=== PATIENT | female | born 1985 | race Caucasian/White ===

== ENCOUNTER → 2022-01-29 | Outpatient (CLI) | payer SELFPAY, OTHER ==
--- NOTE | 2022-01-29 15:11 | US_ITS ---
STUDY: ULTRASOUND OF THE FEMALE PELVIS - COMPLETE REASON FOR EXAM: Female, 36 years old. BLOATED AB TECHNIQUE: Endovaginal. Transvaginal US was obtained to better visualized the ovaries. COMPARISON: None. FINDINGS: The uterus is anteverted and is in a midline position. The uterus measures 16 x 11.4 cm. Normal uterine cervix. The endometrium measures 4.7 mm in thickness, and is hyperechoic. There is no demonstrated endometrial mass. Fibroids measure 2.6 x 4.1 cm. I.U.D. - The patient does not have an I.U.D. The right ovary is visualized. The right ovary measures 3.8 x 3.3 cm. There is no right ovarian cyst or ovarian mass. There is no visualized right adnexal mass or complex lesion. There is normal arterial and normal venous vascularity. The left ovary is visualized. The left ovary measures 2.2 x 1.7 cm. There is no left ovarian cyst or ovarian mass. There is no visualized left adnexal mass or complex lesion. There is normal arterial and normal venous vascularity. There is no fluid in the cul-de-sac. The urinary bladder is distended. This can suggest urinary retention. US/Pelvic (Non ) IMPRESSION: Fibroid uterus. The urinary bladder is distended. This can suggest urinary retention. Electronically Signed: Xander Cadena MD at 18:21 EDT ,
== END | disposition home or self-care (01) ==
PROVIDERS: PCP Family Medicine
DX: R14.0 Abdominal distension (gaseous) (principal)
CPT/HCPCS: 76856

== ENCOUNTER 2022-04-24 05:42 | Inpatient (IN) | payer SELFPAY, OTHER ==
[2022-04-11 09:37] LABS: Hematocrit 43.5 % (37-47); Hemoglobin 14.2 g/dL (12.0-15.0); Mean Corp Hgb Conc 32.6 g/dL (32-36); Mean Corpuscular Hgb 29.7 pg (27.0-32.0); Mean Platelet Vol. 9.8 fl (6.2-12.0); Platelet Count 261 K/mm3 (150-450); RBC Distribution Width CV 12.6 % (11.6-14.6); RBC Distribution Width SD 41.8 fl (35.1-43.9); Red Blood Count 4.78 M/mm3 (4.2-5.4); White Blood Count 8.3 K/mm3 (4.4-11.0)
--- NOTE | 2022-04-17 10:56 | CASEMGMT ---
HAYDEN WRIGHT Assessment: TC to pt for initial transition planning/care coordination assessment. RN ADRIANA introduced self and role at [facility], pt voices understanding and consents to assessment. Care providers, pharmacy, and demographics verified/updated. Admitting Dx: abdominal myomectomy PCP:Jose Specialists:Diana Weiner, THEATRICAL VARIETY AGENT Preferred Pharmacy: [facility] Retail Insurance: [facility] Package Plan, AA Prescription Benefit: no LW/HPOA: Pt denies having a LW/DPOA and denies need for info regarding AD. LNOK: Henry Monet, Living Arrangements: Pt lives with in a three story house with a back entrance with no steps. Pt reports she is I in ADL's and denies concerns at home. Transportation: Pt hires drivers for transportation and denies issues with this. DME/HHC/SNF: Pt denies having any DME in the home, previous HHC or SNF stays. Pt states no concerns with going home at time of dc. Pt states no further concerns/needs. CM to follow. Advised pt to ask CM if any further question/concerns/needs arise, voices understanding. Pt Goal: Home Plan: Home
--- NOTE | 2022-04-23 14:32 | HP.PCM_ITS ---
History and Physical Date of Admission: 04/24/22 MR#: [id number] Acct: [id number] Name:RONY SEVILLA Rep #: [id number] : 1985 ? Provider: Dr. Vonda Mack, DO Age/Sex:? 37/F Intake Vital Signs ? 04/13/2211:03 Height 5 ft 1 in Weight: 123 lb 6 oz BMI 23.3 BP 100/60 Intake Visit Reasons:?Pre-op, missed appt 04/11 Allergies No Known Allergies Allergy (Unverified 04/13/22 11:05) Medications multivitamin 1 tab PO DAILY 04/13/22 [History Confirmed 04/13/22] Is last menstrual period known: Yes Last Menstral Period: 04/11/22 Nurse's Note: irregular menses PFSH Surgical History?(Updated 04/13/22 @ 11:07 by Krissy Yan) H/O removal of cyst Family History?(Updated 04/13/22 @ 11:07 by Krissy Yan) Grandfather Diabetes Social History?(Updated 04/13/22 @ 11:08 by Krissy Yan) Smoking Status:? Never smoker alcohol intake:? never substance use type:? does not use what type of physical activity do you participate in:? walking seatbelt use:? sometimes do you feel safe at home:? Yes additional social history:? - [facility] Pre-op, missed appt 04/11 Details: RONY HIRSCH is a 37 year old G0 who presents for discussion about pelvic pain and heavy menses. She is Janes and x 10 years without success in getting . She states that she visited once with a graves registration specialist to discuss infertility and an ultrasound was ordered. The ultrasound showed a 16 cm uterus containing a 12 cm fibroid. She is not interested in a complete hysterectomy but is having extreme pain in her lower abdomen and bladder discomfort. Her is a twin and his twin brother was found to be sterile. He states that he is not ready to be checked and patient states that this would not change her decision either way. Female Reproductive History Last Menstral Period: 04/11/22 ROS Const ROS Unobtainable: All systems reviewed & are unremarkable except as noted in H Resp Resp: Reports system reviewed and no additional complaints, except as documented; Denies cough GI GI: Reports as per HPI Psych Psych: Reports system reviewed and no additional complaints, except as documented Exam Const General: cooperative, healthy appearing, comfortable and no acute distress Resp Effort & Inspection: normal respiratory effort Skin General: no rashes or lesions noted Psych Appearance: grossly normal Speech and Movement: speech and movement normal Coding Level of Care Code Off vis,est,level 4 Diagnoses Uterine fibroid? D25.9 Enlarged uterus? N85.2 Assessment and Plan Assessment and Plan (1) Uterine fibroid: ?Status:?Acute ?Plan: After discussing the patient's diagnosis and treatment plan options, patient wishes to proceed with surgical management. The plan is for an abdominal myomectomy scheduled 04/24/2022 Dr. Ramírez will be assisting. ?I have discussed with the patient the risks, benefits, and alternatives of the procedure which include but are not limited to risks of anesthesia, bleeding, infection, possible damage to bowel, bladder, or surrounding vasculature which could lead to additional surgery to evaluate any complications.? Patient agrees to procedure and wishes to proceed.? ACOG/uptodate references given for addition al information regarding procedure.? (2) Enlarged uterus: ?Status:?Acute UPDATE- I have seen the patient and performed any clinically relevant updates to the history and physical exam. Vonda Mack, DO
[2022-04-24] VITALS (11 sets, daily range): BP systolic 94–114; BP diastolic 51–65; PULSE 50–87; RESP 14–18; TEMP 36.2–37.1; O2SAT 97–100; BMI 23.8
--- NOTE | 2022-04-24 | UTER_PTH ---
PATIENT: RONY HIRSCH LOC: MS3 U#:[id number] AGE/SX: 37/F [place] [facility] [place]24/[address]: Dr. Vonda Mack DO : 1985 BED: 1 DIS: 04/25/2022 SPEC #: [id number] RECD: 04/24/22 10:12 STATUS: MAHESH LETICIA #: [id number] MARY: 04/24/22 00:[address]: Vonda Mack DEPT: SURGICAL PATHOLOGY RECD BY: Leo Bueno ENTERED: 04/24/22 10:13 SP TYPE: UTERINE CO OTHR DR: Dr. Gil Garcia MD Tissues: Uterine cervix, NOS Procedures: Surgery Specimen Level IV HEADER OPERATION: Abdominal myomectomy PRE-OP DIAGNOSIS: Uterine fibroid, enlarged uterus TISSUE SUBMITTED: Uterine fibroids MICROSCOPIC DIAGNOSIS Uterine fibroid, excision: Fragments of leiomyomas with degenerative changes. AM:caroline 04/25/2022 MICROSCOPIC DESCRIPTION Slides are reviewed. GROSS DESCRIPTION Received in fixative is one container labeled with the patient's name and designated uterine fibroid. The specimen consists of multiple nodular pieces of indurated tissue weighing in aggregate 992 gm and measuring in aggregate 24 x 22 x 8 cm. Some of the pieces appear to be previously sectioned. These pieces measure 4 to 16 cm in greatest dimension. Sections of these masses reveal ng whorled cut surfaces without areas of hemorrhage, necrosis or cystic degeneration. Sectioning of the largest nodular mass reveal focal area of softening consistent with degenerative changes. Facilities Maintenance Supervisor sections are submitted in six cassettes as follows: 1 & 2 - largest piece (cassette 2 contains the area of softening), 3??second largest piece, 4 - third largest piece, 5 & 6 - smaller pieces. / FLAVIO:caroline 04/24/2022 TC:1 CPT: 62630
[2022-04-24] MEDS: Lactated Ringers 1,000 ML 15 ML IV (06:33)
[2022-04-24 06:58] LABS: Internal QC Validated? YES +Cl - CLEAR BKGD; Pregnancy, Urine Negative Negative
--- NOTE | 2022-04-24 07:28 | PCM.DC ---
Discharge Instructions Diet Discharge Diet: No restrictions Activity Discharge Activity: May Not Drive (for 2 weeks or while taking narcotic pain medications.), May Shower and May Take a Tub Bath (in 7 days.) May resume sexual activity in: 4-6 weeks Weight Bearing Status: Full weight bearing Lifting Restrictions: 20 pounds Dressing / Incision Call your doctor if your incision/area has: Continuous Slow Oozing, Sudden Increased Bleeding, Increased Pain/ Swelling, Increased Redness and Foul Smelling Discharge Call your doctor if you observe: Fever of 101 or Higher and Using more than 1 pad per hour Suture Line Care: Avoid Pulling/Pushing and Avoid Pinching/Bending Cleanse incision/area with: Soap & Water and Keep Dressing Clean & Dry Follow Up Care Please Follow Up With: Vonda Mack DO When: Call [phone] to make an appointment for an incision check in 1-2 weeks. Test Results: Test results from this visit will be discussed in further detail at your follow-up appointment, if applicable. Discharge Plan Admission Admit Date/Time: 04/24/22 05:42 Primary Reason for Your Visit: abdominal myomectomy Attending Provider: Vonda Mack Primary Care Provider: Gil Garcia Instructions Patient Instructions: Myomectomy Discharge Orders/Prescriptions Prescriptions: New ibuprofen 600 mg tablet 600 mg PO Q6H PRN (Reason: pain) 7 Days Qty: 30 0RF oxycodone-acetaminophen [Percocet] 5-325 mg tablet 1 tab PO Q4H PRN (Reason: pain) 7 Days Qty: 20 0RF Continued multivitamin Tablet 1 tab PO DAILY Other Ambulatory Orders: ,Urine (Routine) Timeframe: [id number] Facility: [facility] - Location: Laboratory Ordered By: Dr. Vonda Mack Referrals / Follow Up: Gil Garcia MD [Primary Care Provider] - Disposition Disposition (needs filled in before D/C Order can be placed): Home, Self Care
[2022-04-24] MEDS: Cefotetan 2 GM in 0.9% NS 100 ML IV (07:30)
[2022-04-24] MEDS: Bupivacaine 0.25% 30 ML Vial (07:36)
[2022-04-24] MEDS: BUPIVACAINE LIPOSOME/PF 20 ML VIAL OPERA.SITE (08:07)
[2022-04-24] MEDS: Vasopressin 20 UNITS/ML Vial (08:08)
--- NOTE | 2022-04-24 09:11 | OP.PCM_ITS ---
Problems Associated Problem List Diagnoses (1) Enlarged uterus: (2) Uterine fibroid: Report of Operation Date of Procedure: 04/24/22 Pre-Operative Diagnosis: 37 y/o G0 with enlarged fibroid uterus Post-Operative Diagnosis: 37 y/o G0 with enlarged fibroid uterus Surgery/Procedure Performed:: abdominal myomectomy Description of Surgical Findings:: large 900gram myometrial fibroid Surgeon: Vonda Mack sales and service change leader: Susan Ramírez Type of Anesthesia: General Anesthesiologist: Rick Santoro Estimated Blood Loss (mL): 200cc Fluids Replaced: 1200cc Description of Procedure: Patient was brought to the operating room and general anesthesia was administered. She was prepped prepped and draped in the usual sterile fashion in a supine position. A Troncoso catheter was placed into the urethra. A low transverse incision was made on the abdomen. Fascia was nicked in the midline and extended laterally using the Retana scissors. The anterior aspect of the fascia was grasped with Lea clamps and the underlying rectus muscle dissected off with the Bovie. The inferior aspect of the fascia was grasped with Lea clamps and the underlying rectus muscle dissected off with the Bovie. The rectus muscles were in the midline. The peritoneum was entered sharply. A small Karl retractor was inserted into the abdomen. The uterus was noted to be grossly enlarged but wider than it was long. The fibroid was noted on the anterior aspect of the uterus and injected with dilute vasopressin. A scalpel was used to incise the serosa and the muscle layer of the uterus. The fibroid appeared immediately and was dissected using both blunt sharp and electrocautery. The fibroid was large enough that it was cored out. This took multiple incisions in the fibroid to remove it in its entirety. The fibroid was passed off and was weighed at 900 g. It appeared that the endometrium was not entered during this procedure. The muscle layer was reapproximated using a series of interrupted 0 Vicryl suture and application of 2 pieces of fibrillar to create excellent hemostasis the muscle layer was also reapproximated with a running layer of and 1-0 Vicryl suture in imbricating layer of a 1-0 Monocryl suture. The serosa of the uterus was reapproximated using a 3-0 Vicryl. Excellent hemostasis was noted at all operative sites Next the peritoneum was closed with a 3-0 Vicryl. The fascia was closed with a strata fix suture. And the skin was sent closed with a subcutaneous layer of 4-0 Monocryl. Also during the procedure the muscle and fascial layers were injected with a Exparel solution containing Marcaine. The patient tolerated the procedure well sponge lap needle counts were correct x2 and she is now being brought to the recovery room in stable condition. Complications none Admit VTE Documentation VTE Present on Admission: Yes VTE Mechan Device Prophylaxis: SCD's VTE Pharm Prophylaxis ordered?: No Reason prophylaxis not ordered:: Treatment Not Indicated Multi Select Codes Urinary/Genital Urinary/Genital CPT Codes: 91108 Myomectomy, >5 fibroids >250gr uterus
[2022-04-24] MEDS: Docusate Sodium 100 MG Capsule PO ×2 (11:03→21:39)
[2022-04-24] MEDS: Ketorolac 30 MG/ML Syringe IV ×2 (12:09→18:33)
[2022-04-24] MEDS: Acetaminophen 500 MG Tablet 1000 MG PO ×2 (12:09→18:33)
--- NOTE | 2022-04-24 15:33 | CPS ---
started by nursing
[2022-04-24] MEDS: 0.9% Saline Lock 10 ML Syringe IV ×2 (18:35→21:39)
[2022-04-25 00:50] VITALS: BP 106/60; PULSE 62; RESP 18; TEMP 36.5; O2SAT 100
[2022-04-25] MEDS: Ketorolac 30 MG/ML Syringe IV ×2 (00:52→05:30)
[2022-04-25] MEDS: Acetaminophen 500 MG Tablet 1000 MG PO ×2 (00:52→05:29)
[2022-04-25] MEDS: 0.9% Saline Lock 10 ML Syringe IV ×2 (00:52→05:30)
[2022-04-25 05:25] VITALS: BP 105/66; PULSE 69; RESP 16; TEMP 37.1; O2SAT 98
[2022-04-25 06:13] LABS: Hematocrit 37.6 % (37-47); Hemoglobin 12.4 g/dL (12.0-15.0); Mean Corpuscular Hgb 29.7 pg (27.0-32.0); Mean Platelet Vol. 10.2 fl (6.2-12.0); Platelet Count 253 K/mm3 (150-450); RBC Distribution Width CV 12.7 % (11.6-14.6); RBC Distribution Width SD 41.6 fl (35.1-43.9); Red Blood Count 4.18 M/mm3 (4.2-5.4); White Blood Count 14.5 K/mm3 (4.4-11.0)
[2022-04-25 07:55] VITALS: O2SAT 96
[2022-04-25 08:41] VITALS: BP 96/54; PULSE 64; RESP 16; TEMP 36.7; O2SAT 100
--- NOTE | 2022-04-25 10:16 | PCM.PN.OB ---
Subjective Subjective pt is sitting up in bed. She has some burning at her incision but overall states that she feels well and ready to go home Objective Data Objective Data Vital Signs: Vital Signs Temp Pulse Resp BP Pulse Ox O2 Del Method 98.1 F 64 16 96/54 L 100 Room Air 04/25/22 08:41 04/25/22 08:41 04/25/22 08:41 04/25/22 08:41 04/25/22 08:41 04/25/22 08:41 Oxygen Delivery Method Room Air Weight: 125 lb 12.8 oz Body Mass Index (BMI) 23.8 Intake & Output: Intake and Output for Last 24 Hours 04/23/22 04/24/22 04/25/22 23:59 23:59 23:59 Intake Total 802.92 / 802.92 400 / 400 Output Total 1999 / 1999 1000 / 1000 Balance -1197.08 / -1197.08 -600 / -600 Lab / Micro Data Result Diagrams: 04/25/22 05:51 Labs: Laboratory Results - last 24 hr 04/25/22 05:51: WBC 14.5 H, RBC 4.18 L, Hgb 12.4, Hct 37.6, MCV 90.0, MCH 29.7, MCHC 33.0, RDW Std Deviation 41.6, RDW Coeff of Kennedy 12.7, Plt Count 253, MPV 10.2 ROS Constitutional Constitutional: Reports systems reviewed and no addt'l complaints, except as documented Cardiovascular Cardiovascular: Denies chest pain, dizziness, dyspnea or irregular heart rhythm Respiratory/Chest Respiratory/Chest: Denies cough, pain on inspiration or shortness of breath at rest Gastrointestinal Gastrointestinal: Denies abdominal pain, nausea or vomiting Genitourinary Genitourinary: Denies burning urination Musculoskeletal Musculoskeletal: Denies muscle cramps, muscle spasms or muscle weakness Neurologic Neurologic: Denies confusion, dizziness, headache(s) or lack of coordination Psychiatric Psychiatric: Denies anxiety, behavioral changes or depression Physical Exam HEENT normocephalic Resp normal respiratory effort and normal air movement GI soft to palpation, non-tender and non-distended Rectal Exam: other Other Details: Incision is clean, dry, and intact no CVA tenderness Extremity normal to inspection General Extremity: edema bilateral (trace ) Assessment & Plan (1) Status post myomectomy: COMMENT: abdominal myomectomy 04/24/22- MANFRED (2) Enlarged uterus: (3) Uterine fibroid: PLAN: Plan patient is s/p abdominal myomectomy POD 1 1. routine ERAS protocol postop care- increase ambulation, encourage oral intake and oral control of pain. scds for dvt prophylaxis, patient stable for discharge to home.
[2022-04-25] MEDS: Docusate Sodium 100 MG Capsule PO (10:39)
--- NOTE | 2022-04-25 10:52 | CASEMGMT ---
HAYDEN CM in to pt room, pt up and dressed and ready for dc. Pt states she is doing as well as can be expected. Denies any homegoing needs.
== END 2022-04-25 11:10 | disposition home or self-care (01) | DRG 743 ==
LOC: ACINP 09:48 → MS3 10:13
PROVIDERS: Admitting Provider Obstetrics & Gynecology; PCP Family Medicine; Referring Provider Obstetrics & Gynecology; Visit Provider Obstetrics & Gynecology
PROC: 0UT90ZZ Resection of Uterus, Open Approach (ICD-10-PCS; CPT 58150; principal; 2022-04-24 07:10)
DX: D25.9 Leiomyoma of uterus, unspecified (principal); N85.2 Hypertrophy of uterus
CPT/HCPCS: 36415; 81025; 85027; 86850; 86900; 86901; 88305; 99251; J7120; A4216; G0463; J2405